=== PATIENT | male | born 1985 | race African-American/Black ===

== ENCOUNTER 2016-09-03 12:56 | Emergency (ER) | payer SELFPAY ==
[2016-09-03 13:05] VITALS: BP 123/75
--- NOTE | 2016-09-03 13:10 | EDM.PDOC ---
ED HPI GENERAL MEDICAL PROBLEM - General Chief Complaint: ENT Problem Stated Complaint: tooth pain Time Seen by Provider: 09/03/16 13:00 Source of Information: Reports: Patient, Old records ([facility] EMR. No paper hospital chart available.) History Limitations: Reports: No limitations - History of Present Illness INITIAL COMMENTS - FREE TEXT/NARRATIVE: The patient was driven to the emergency room via private automobile by his friend for evaluation of persistent 9/10 sharp right lower dental pain, which has been refractory to high-dose OTC ibuprofen. He has been taking prescription ibuprofen at 800 mg every 3-4 hours with last dose at 23:00 hours yesterday evening. He also has been gargling with Listerine on a daily basis. Patient was evaluated for a broken left upper tooth in the emergency room on 08/26. He apparently completed one course of amoxicillin about one month ago with symptoms present for about 2-3 months. No recent history of abdominal pain , heartburn, nausea, diarrhea, melena, gross hematochezia, or any food intolerance, including fatty foods, etc.. The patient also denies any recent fever, cough, wheezing, dyspnea, etc.. Onset: gradual Duration: Constant, Getting worse, Other (As above) Location: Reports: face Quality: Reports: Same as previous episode, Sharp, Throbbing Severity: severe Improves with: Reports: None Worsens with: Reports: Movement (Cold and hot liquids sensitivity) Context: Reports: Other (As above) Associated Symptoms: Denies: confusion, chest pain, cough, diaphoresis, fever/ chills, headaches, loss of appetite, malaise, nausea/vomiting, rash, shortness of breath Treatments BOND MANAGER: Reports: NSAIDS Right Tooth/Teeth Pain Score (Numeric/FACES): 9 - Related Data Allergies Allergy/AdvReac Type Severity Reaction Status Date / Time No Known Allergies Allergy Verified 09/03/16 12:57 Past Medical History HEENT History: Reports: None. Denies: Allergic rhinitis, Glaucoma, Hard of hearing, Impaired vision, Macular degeneration, Retinal detachment Cardiovascular History: Reports: Other (see below). Denies: Afib, Aneurysm, Arrhythmia, Blood clots/VTE/DVT, CAD, Heart murmur, High cholesterol, Hypertension, ME, Syncope Other Cardiovascular History: He did uncertain about his cholesterol status Respiratory History: Reports: None. Denies: Asthma, COPD, Intubation, difficult , Intubation, previous, PE, Pneumothorax, Sleep apnea, TB Gastrointestinal History: Denies: Celiac disease, Cholelithiasis, Chronic constipation, Chronic diarrhea, Fecal incontinence, Gastritis, GERD, GI bleed, Hepatitis, Hiatal hernia, Inflammatory bowel disease, Irritable bowel syndrome, Jaundice, Pancreatitis Genitourinary History: Reports: None. Denies: BPH, Chronic renal insuffiency, Renal calculus, STD, Urinary incontinence, UTI, recurrent Musculoskeletal History: Reports: None. Denies: Arthritis, Back pain, chronic, Fracture, Gout, Neck pain, chronic, Osteoarthritis, RA, SLE Neurological History: Reports: None. Denies: Cerebral aneurysms, Concussion, CVA, Headaches, chronic, Head trauma, Migraines, Seizure, TIA Psychiatric History: Reports: None. Denies: Abuse, victim of, ADD, ADHD, Addiction, Anxiety, Dementia, Depression, Psych Hospitalization(s), PTSD, Suicide attempt, Suicidal ideation Endocrine/Metabolic History: Reports: None. Denies: Diabetes, type I, Diabetes , type II, Hypothyroidism, IDDM Hematologic History: Reports: None. Denies: Anemia, Blood transfusion(s), Iron deficiency Immunologic History: Reports: None. Denies: AIDS, HIV, SLE Oncologic (Cancer) History: Reports: None. Denies: Basal cell carcinoma, Hodgkin's Lymphoma, Leukemia, Lymphoma, Malignant melanoma, Non-Hodgkin's Lymphoma, Squamous cell carcinoma Dermatologic History: Reports: None. Denies: Eczema, Psoriasis - Infectious Disease History Infectious Disease History: Reports: Chicken pox. Denies: C-difficile, Measles , Meningitis, Mononucleosis, MRSA, Mumps, Pertussis (whooping cough), Rheumatic Fever, Rubella, Scarlet fever, Shingles, VRE - Past Surgical History Head Surgeries/Procedures: Reports: None HEENT Surgical History: Reports: Oral surgery. Denies: Adenoidectomy, Eye surgery, Laser surgery, LASIK, Myringotomy w tube(s), Naso-sinus surgery, Tonsillectomy Other HEENT Surgeries/Procedures: My wisdom x3 at age 27 with additional teeth extractions Cardiovascular Surgical History: Reports: None. Denies: Varicose, Vascular surgery Respiratory Surgical History: Reports: None. Denies: Thoracentesis GI Surgical History: Reports: None. Denies: Appendectomy, Cholecystectomy, Colonoscopy, EGD, Hernia, abdominal, Hernia, inguinal, Hernia repair/other Male Surgical History: Reports: Circumcision, Other (see below). Denies: Vasectomy Other Male Surgeries/Procedures: Circumcision as an Endocrine Surgical History: Reports: None Neurological Surgical History: Reports: None. Denies: C-Spine, Discectomy, Laminectomy, Lumbar spine, Spinal fusion, Vertebroplasty Musculoskeletal Surgical History: Reports: None. Denies: Arthroscopic procedure , Carpal tunnel, Ganglion cyst, Joint replacement, ORIF, Shoulder surgery Oncologic Surgical History: Reports: Lobectomy Dermatological Surgical History: Reports: None Social & Family History - Family History Family Medical History: Noncontributory - Tobacco Use Smoking Status *Q: Current Every Day Smoker Tobacco Use Within Last Twelve Months: Cigarettes Years of Tobacco use: 13 Packs/Tins Daily: 0.5 Smoking Cessation Information Provided To Patient: Yes Second Hand Smoke Exposure: No Second Hand Smoke Education Provided: No - Caffeine Use Caffeine Use: Reports: Coffee (One cup per day), Energy drinks (2 cans per day) , Tea (3 glasses per day). Denies: Soda - Alcohol Use Alcohol Use History: No Days Per Week of Alcohol Use: 0 (No previous DWIs, problems with alcohol abuse, etc.) - Recreational Drug Use Recreational Drug Use: No Drug Use in Last 12 Months: No Recreational Drug Type: Reports: Marijuana/Hashish (Daily use between ages 18 and 26). 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 Denies: fever, chills, weakness, weight loss HEENT: Reports: Dental pain. Denies: Ear discharge, Ear pain, Eye discharge, Eye pain, Glasses, Hearing loss, Rhinitis, Sinus problem, Throat pain, Vertigo, Vision change Respiratory: Reports: no symptoms. Denies: shortness of breath, wheezing, pleuritic chest pain, cough Cardiovascular: Reports: No symptoms. Denies: Chest pain, Blood pressure problem, Claudication, Dyspnea on exertion, Edema, Lightheadedness, Orthopnea, Palpitations, Syncope Endocrine: Reports: no symptoms. Denies: fatigue GI/Abdominal: Reports: No symptoms. Denies: Abdominal pain, Anorexia, Black stool, Bloody stool, Constipation, Diarrhea, Decreased appetite, Difficulty swallowing, Distension, Flatus, Hematemesis, Hematochezia, Melena, Nausea, Stool incontinence, Vomiting : Reports: no symptoms. Denies: discharge, dysuria, flank pain, frequency, hematuria, incontinence, pain, urgency, urinary retention Musculoskeletal: Reports: no symptoms. Denies: neck pain, shoulder pain, arm pain, back pain, leg pain Skin: Reports: no symptoms. Denies: diaphoresis, bruising, pruritis, wound Neurological: Reports: no symptoms. Denies: confusion, dizziness, headache, numbness, paresthesia, tingling, weakness Psychiatric: Reports: No symptoms. Denies: Agitation, Anxiety, Confusion, Depression Hematologic/Lymphatic: Reports: no symptoms Immunologic: Reports: no symptoms ED EXAM, GENERAL - Physical Exam Exam: See Below Exam Limited By: No limitations General Appearance: alert, WD/WN, no apparent distress Eye Exam: bilateral eye: EOMI, normal fundi (No nystagmus), PERRL Ears: normal external exam, normal canal, hearing grossly normal, normal TMs Nose: normal inspection, normal mucosa, no blood Throat/Mouth: Normal lips, Normal teeth (Large caries and broken teeth into the gumline of the right lower molar region with moderate conjunctival inflammation and evidence of surrounding 2 cm. And assess with no acute drainage however moderate localized tenderness, an additional large caries in the fourth left upper tooth with no evidence of drainage or abscess in this area), Normal oropharynx, Normal voice, No airway compromise. No: Normal gums (As above), Dysphagia, Inflammation, Perioral cyanosis Head: atraumatic, normocephalic. No: facial swelling, facial tenderness, sinus tenderness Neck: normal inspection, supple, non-tender, full range of motion. No: lymphadenopathy (L), lymphadenopathy (R), thyromegaly Respiratory/Chest: no respiratory distress, lungs clear, normal breath sounds, no accessory muscle use, chest non-tender. No: pleural rub, retractions Cardiovascular: normal peripheral pulses, regular rate, rhythm, no edema, no gallop, no JVD, no murmur, no rub. No: gallop/S3, gallop/S4 Peripheral Pulses: 4+: radial (L), radial (R) GI/Abdominal: normal bowel sounds, soft, non tender, no organomegaly, no distention, no abnormal bruit, no mass. No: guarding (Male) Exam: Deferred Rectal (Males) Exam: Deferred Back Exam: normal inspection, full range of motion. No: CVA tenderness (L), CVA tenderness (R), muscle spasm Extremities: normal inspection, normal range of motion, non-tender, normal capillary refill, no pedal edema Neurological: alert, oriented, CN II-XII intact, normal cognition, normal gait, no motor/sensory deficits Psychiatric: normal affect, normal mood Skin Exam: Warm, Dry, Intact, Normal color, No rash. No: Diaphoretic, Increased warmth, Wound/incision Lymphatic: no adenopathy Course - Vital Signs Last Recorded V/S: Last Vital Signs Temp 36.6 C 09/03/16 12:59 Pulse 86 09/03/16 12:59 Resp 20 09/03/16 12:59 BP 123/75 09/03/16 12:59 Pulse Ox 100 09/03/16 12:59 Vital Signs - 24 hr 09/03/16 12:59 Temperature [ 36.6 C Oral] Pulse, 86 Peripheral [ Left Brachial] Respiratory 20 Rate Blood Pressure 123/75 [Left Upper Arm ] O2 Sat by Pulse 100 Oximetry - Orders/Labs/Meds Orders: Active Orders 24 hr Category Date Time Status Obtain Past Medical Record [OM.PC] Routine Oth 09/03/16 13:10 Active Labs: Laboratory Tests 09/03/16 09/03/16 Range/Units 13:20 13:20 WBC 7.6 (4.0-10.2) K/uL RBC 4.86 (4.33-5.41) M/uL Hgb 14.6 (13.1-16.8) g/dL Hct 42.6 (39.0-49.0) % MCV 87.7 (84.0-98.0) fL MCH 30.0 (28.2-33.3) pg MCHC 34.3 (31.7-36.0) g/dL RDW 13.2 (11.2-14.1) % Plt Count 267 (150-350) K/uL Neut % (Auto) 58.1 (45.0-80.0) % Lymph % (Auto) 32.7 (10.0-50.0) % [place] % (Auto) 5.3 (2.0-14.0) % Eos % (Auto) 3.6 (0.0-5.0) % Baso % (Auto) 0.3 (0.0-2.0) % Neut # 4.41 (1.40-7.00) K/uL Lymph # 2.48 (0.50-3.50) K/uL [place] # 0.40 (0.00-1.00) K/uL Eos # 0.27 (0.00-0.50) K/uL Baso # 0.02 (0.00-0.20) K/uL Sodium 139 (136-145) mmol/L Potassium 3.8 (3.5-5.1) mmol/L Chloride 103 (98-107) mmol/L Carbon Dioxide 27.2 (21.0-32.0) mmol/L BUN 12 (7-18) mg/dL Creatinine 0.84 (0.51-1.17) mg/dL Est Cr Clr Drug Dosing 132.00 mL/min Estimated GFR (MDRD) > 60 mL/min Glucose 130 H (74-106) mg/dL Calcium 9.1 (8.5-10.1) mg/dL Total Bilirubin 0.3 (0.2-1.0) mg/dL AST 17 (15-37) U/L ALT 31 (12-78) U/L Alkaline Phosphatase 67 (46-116) IU/L Total Protein 8.1 (6.4-8.2) g/dL Albumin 4.3 (3.4-5.0) g/dL Meds: Medications Discontinued Medications Generic Name Dose Route Start Last Admin Trade Name Freq PRN Reason Stop Dose Admin Ceftriaxone Sodium 1 gm 09/03/16 13:38 09/03/16 14:08 Rocephin IM 09/03/16 13:39 1 gm ONETIME ONE Administration Ceftriaxone Sodium Confirm 09/03/16 14:03 09/03/16 14:09 Rocephin Administered 09/03/16 14:04 Not Given Dose 1 gm .ROUTE .STK-MED ONE Lidocaine HCl 5 ml 09/03/16 13:39 09/03/16 14:08 Xylocaine-Mpf 1% INJECT 09/03/16 13:40 5 ml ONETIME ONE Administration - Radiology Interpretation Free Text/Narrative:: None Departure - Departure Time of Disposition: 14:28 Disposition: Home, Self-Care 01 Condition: fair Clinical Impression: Dental abscess, Tobacco abuse counseling Referrals: PCP,Unknown [Primary Care Provider] - Forms: ED Department Discharge Additional Instructions: 1. Followup with Dr. Kramer, dentist, in [place] tomorrow afternoon as scheduled at 13:30 hours. 2. Tylenol 650 mg by mouth every 4 hours and/or OTC ibuprofen 2-3 tabs by mouth every 6 hours with food as directed./needed. 3. Listerine gargles four times per day, after meals and at bedtime, with additional Chloroseptic lozenges or spray as needed for 10 days and/or until symptoms resolve. 4. Stop all tobacco use SALUD as directed/per provided information and consider contacting Quit LIne, etc.. 5. NEVER EXCEED THE RECOMMENDED DOSE OF MEDICINES, INCLUDING OTC MEDICINES, ETC. . - Problem List & Annotations (1) Dental abscess SNOMED Code(s): 259834985 Code(s): K04.7 - PERIAPICAL ABSCESS WITHOUT SINUS Status: Acute Priority : High Onset Date: ~09/03/16 Annotation/Comment:: Significant right lower molar abscess with IM Rocephin given in the emergency room as above. Patient cautioned on excessive use of ibuprofen, etc.. Telephone consultation with the office of Dr. Kramer, dentist in [place], who does agree to see the patient tomorrow for probable tooth extraction. No further treatment recommendations given. Compliance with followup appointment strongly encouraged (2) Tobacco abuse counseling SNOMED Code(s): 852481662, 554249442, 241139724 Code(s): Z71.6 - TOBACCO ABUSE COUNSELING Status: Chronic Priority: Medium Annotation/Comment:: Tobacco cessation encouraged with information provided. Patient also cautioned the discontinuation of energy drinks - Problem List Review Problem List Initiated/Reviewed/Updated: Yes - My Orders Last 24 Hours: My Active Orders 09/03/16 13:10 Obtain Past Medical Record [OM.PC] Routine - Assessment/Plan Last 24 Hours: My Active Orders 09/03/16 13:10 Obtain Past Medical Record [OM.PC] Routine Assessment:: As above Plan: As above. Extensive precautions were given to the patient, who is in agreement with the treatment plan. See Patient Instructions for further treatment and plan.
[2016-09-03 13:36] LABS: CHLORIDE,CL 103 mmol/L (98-107); SODIUM,NA 139 mmol/L (136-145)
[2016-09-03] MEDS ORDERED: cefTRIAXone 1 GM Vial IM ONE (13:38)
[2016-09-03] MEDS ORDERED: cefTRIAXone 1 GM Vial ONE (14:03)
== END 2016-09-03 14:28 | disposition home or self-care (01) ==
LOC: LL.ED 12:56
DX: K04.7 Periapical abscess without sinus (principal); K02.9 Dental caries, unspecified; F17.210 Nicotine dependence, cigarettes, uncomplicated
CPT/HCPCS: 36415; 80053; 85025; 96372; 99282; 99283; J0696